=== PATIENT | female | born 1995 | race Caucasian/White ===

== ENCOUNTER 2017-03-24 19:19 | Emergency (ER) | payer MEDICAID ==
[2017-03-24 19:22] VITALS: BP 155/84
[2017-03-24] MEDS ORDERED: Ketorolac 30 MG/ML SDV IVPUSH ONE (19:57)
--- NOTE | 2017-03-24 19:57 | EDM.PDOC ---
ED HPI GENERAL MEDICAL PROBLEM - General Chief Complaint: Headache Stated Complaint: throbbing headache Time Seen by Provider: 03/24/17 19:27 Source of Information: Reports: Patient History Limitations: Reports: No Limitations - History of Present Illness INITIAL COMMENTS - FREE TEXT/NARRATIVE: This patient is a 21 year old female that presents to the ER. Patient reports that since Sunday she has had a frontal headache that is described as throbbing. She reports she went to chiropractor on Sunday. She reports she did have some congestion, drainage, sore throat and saw PCP on Sunday and diagnosed with URI and put on Amoxicillin. She reports that her congestion, draingae, sinus pain, sore throat has nearly resolved. She reports her headache is not sinus pain. She reports she feels like it is migraine related. She has no history of migraine. She reports sound makes her head hurt worse because she has kids. She reports could be tension or stress related due to this. She denies n, v, d, f, sinus pain, sinus pressure, sore throat, neck pain, neck stiffness, cp, soa, abd pain, urinary/bowel changes. Onset Date: 03/26/17 Duration: Day(s): (5) Location: Reports: Head Quality: Reports: Throbbing Severity: Moderate Improves with: Reports: None Worsens with: Reports: None Associated Symptoms: Reports: Headaches. Denies: Confusion, Chest Pain, Cough, cough w sputum, Diaphoresis, Fever/Chills, Loss of Appetite, Malaise, Nausea/ Vomiting, Rash, Seizure, Shortness of Breath, Syncope, Weakness - Related Data Allergies Allergy/AdvReac Type Severity Reaction Status Date / Time No Known Allergies Allergy Verified 03/24/17 19:22 Home Meds: Home Meds Amoxicillin 500 mg PO BID 03/24/17 [History] Past Medical History - Past Health History Medical/Surgical History: Denies Medical/Surgical History - Past Surgical History Female Surgical History: Reports: Section Social & Family History - Family History Family Medical History: Noncontributory - Tobacco Use Smoking Status *Q: Never Smoker - Recreational Drug Use Recreational Drug Use: No ED ROS GENERAL - Review of Systems Review Of Systems: See Below Constitutional: Reports: No Symptoms HEENT: Reports: Sinus Problem (mild congestion), Other (phonophobia). Denies: Dental Pain, Ear Discharge, Ear Pain, Eye Discharge, Eye Pain, Hearing Loss, Nosebleed, Nose Pain, Rhinitis, Throat Pain, Throat Swelling, Vertigo, Vision Change Respiratory: Reports: No Symptoms Cardiovascular: Reports: No Symptoms Endocrine: Reports: No Symptoms GI/Abdominal: Reports: No Symptoms : Reports: No Symptoms Musculoskeletal: Reports: No Symptoms Skin: Reports: No Symptoms Neurological: Reports: Headache. Denies: Confusion, Dizziness, Seizure, Syncope , Tremors, Trouble Speaking, Difficulty Walking, Weakness, Change in Speech, Gait Disturbance Psychiatric: Reports: No Symptoms Hematologic/Lymphatic: Reports: No Symptoms Immunologic: Reports: No Symptoms - Physical Exam Exam: See Below Exam Limited By: No Limitations General Appearance: Alert, WD/WN, No Apparent Distress Eye Exam: Bilateral Eye: EOMI, Normal Fundi, Normal Inspection, PERRL Ears: Normal External Exam, Normal Canal, Hearing Grossly Normal, Normal TMs Nose: Normal Inspection, Normal Mucosa, No Blood. No: Nasal Tenderness, Nasal Drainage, Clear Rhinorrhea Throat/Mouth: Normal Inspection, Normal Lips, Normal Teeth, Normal Gums, Normal Oropharynx, Normal Voice, No Airway Compromise, Other (Negative light illumination test. Mild frontal sinus tenderness. ) Head Exam: Atraumatic, Normocephalic Neck: Normal Inspection, Supple, Non-Tender, Full Range of Motion Respiratory/Chest: No Respiratory Distress, Lungs Clear, Normal Breath Sounds, No Accessory Muscle Use Cardiovascular: Normal Peripheral Pulses, Regular Rate, Rhythm, No Edema, No Gallop, No JVD, No Murmur, No Rub Neuro Exam (Abbreviated): Alert, Oriented Extremities: Normal Inspection, Normal Capillary Refill Psychiatric: Normal Affect, Normal Mood Skin Exam: Warm, Dry, Intact, Normal Color, No Rash Course - Vital Signs Last Recorded V/S: Last Vital Signs Temp 99.9 F 03/24/17 19:19 Pulse 89 03/24/17 19:19 Resp 20 03/24/17 19:19 BP 155/84 H 03/24/17 19:19 Pulse Ox 97 03/24/17 19:19 - Orders/Labs/Meds Meds: Medications Discontinued Medications Generic Name Dose Route Start Last Admin Trade Name Freq PRN Reason Stop Dose Admin Ceftriaxone Sodium 1 gm 03/24/17 21:00 03/24/17 21:14 Rocephin IVPUSH 03/24/17 21:01 1 gm ONETIME ONE Administration Sodium Chloride 1,000 mls @ 1,000 mls/hr 03/24/17 19:58 03/24/17 20:04 Normal Saline IV 03/24/17 20:57 1,000 mls/hr .BOLUS ONE Administration Ketorolac Tromethamine 30 mg 03/24/17 19:57 03/24/17 20:05 Toradol IVPUSH 03/24/17 19:58 30 mg ONETIME ONE Administration Levofloxacin 2 packet 03/24/17 21:10 03/24/17 21:20 Take Home: Levofloxacin 500 Mg, 1 Tab Pack PO 03/24/17 21:11 Not Given ONETIME ONE Levofloxacin Confirm 03/24/17 21:32 Levaquin Administered 03/24/17 21:33 Dose 1,000 mg .ROUTE .STK-MED ONE Morphine Sulfate 4 mg 03/24/17 21:00 03/24/17 21:11 Morphine IVPUSH 03/24/17 21:01 4 mg ONETIME ONE Administration Ondansetron HCl 4 mg 03/24/17 21:00 03/24/17 21:10 Zofran IVPUSH 03/24/17 21:01 4 mg NOW STA Administration - Re-Assessments/Exams Free Text/Narrative Re-Assessment/Exam: 03/24/17 21:15 Patient reports her headache feels much improved. Almost completely resolved. Departure - Departure Time of Disposition: 21:20 Disposition: Home, Self-Care 01 Condition: Good Clinical Impression: Headache Qualifiers: Headache type: unspecified Headache chronicity pattern: acute headache Intractability: not intractable Qualified Code(s): R51 - Headache Sinusitis Qualifiers: Sinusitis location: frontal Chronicity: acute Recurrence: non-recurrent Qualified Code(s): J01.10 - Acute frontal sinusitis, unspecified - Discharge Information Instructions: General Headache Without Cause, [id number] Referrals: Tanya Dasilva MD [Primary Care Provider] - Forms: ED Department Discharge Additional Instructions: Followup with your primary care provider Return to the ER for worsening of condition or any emergent concerns May take Excedrin for headache at home as needed Go home and rest in a quite, cool, dark room If you develop an increase in headache, sinus pain or pressure, fever, please return for evaluation. Levaquin 500mg 1 pill once a day for 7 days #5 no refill. Given 2 take home from ER. - Assessment/Plan Plan: PLEASE SEE RN NOTE FOR PFSH.
[2017-03-24] MEDS ORDERED: Sodium Chloride 0.9% 1,000 ML IV ONE (19:58)
[2017-03-24] MEDS ORDERED: Morphine 4 MG/ML Syringe IVPUSH ONE (21:00)
[2017-03-24] MEDS ORDERED: cefTRIAXone 1 GM Vial IVPUSH ONE (21:00)
[2017-03-24] MEDS ORDERED: Ondansetron 4 MG/2 ML SDV IVPUSH STA (21:00)
[2017-03-24] MEDS ORDERED: Take Home: Levofloxacin 500 MG Tab, 1 Tab Pack PO ONE (21:10)
[2017-03-24] MEDS ORDERED: Levofloxacin 500 MG Tab ONE (21:32)
== END 2017-03-24 21:35 | disposition home or self-care (01) ==
LOC: CC.ED 19:19
DX: R51 Headache (principal); J01.10 Acute frontal sinusitis, unspecified
CPT/HCPCS: 96361; 96374; 96375; 99283; J0696; J1885; J2270; J2405; J7030